=== PATIENT | female | born 1985 ===

== ENCOUNTER 2017-10-05 08:07 | Emergency (ER) | payer OTHER ==
[2017-10-05 08:32] VITALS: RESP 16; TEMP 97; O2SAT 98
[2017-10-05] MEDS ORDERED: Sodium Chloride 0.9% 1,000 ML IV STA (08:40)
--- NOTE | 2017-10-05 08:48 | ED PDOC ---
HPI: Female Pain Time Seen by Provider: 10/05/17 08:18 Chief Complaint (Nursing): Female Genitourinary Chief Complaint (Provider): Suprapubic pain and lower back pain History Per: Patient History/Exam Limitations: no limitations Onset/Duration Of Symptoms: Days (x7) Current Symptoms Are (Timing): Still Present Additional Complaint(s): Indu Reynaga is a 32 year old female presenting to the ED for an evaluation of constant suprapubic pain and lower back pain occurring for 1 week prior to arrival. The patient also states associated subjective fever (not present today), chills, dysuria, and white vaginal discharge. She reports taking Bactrim and Pyridium for 6 days prior to arrival without relief. The patient also reports being sexually active with her only. She denies nausea, vomiting, diarrhea, or hematuria. PMD: Dakota Mata MD Past Medical History Reviewed: Historical Data, Nursing Documentation, Vital Signs Vital Signs: Last Vital Signs Temp 97.0 F L 10/05/17 08:11 Pulse 105 H 10/05/17 08:11 Resp 16 10/05/17 08:11 BP 152/88 H 10/05/17 08:11 Pulse Ox 98 10/05/17 08:11 - Medical History PMH: No Chronic Diseases - Surgical History Surgical History: No Surg Hx - Family History Family History: States: No Known Family Hx - Social History Current smoker - smoking cessation education provided: No Ex-Smoker (has not smoked in the last 12 months): No Alcohol: None Drugs: Denies - Home Medications Home Medications: Ambulatory Orders Medication Instructions Recorded Doxycycline Hyclate 100 mg PO BID #20 cap 10/05/17 Ibuprofen [Motrin] 600 mg PO TID #20 tab 10/05/17 - Allergies Allergies/Adverse Reactions: Allergies Allergy/AdvReac Type Severity Reaction Status Date / Time No Known Allergies Allergy Verified 10/05/17 08:21 Review of Systems ROS Statement: Except As Marked, All Systems Reviewed And Found Negative Constitutional: Positive for: Fever (subjective; not present today), Chills Gastrointestinal: Negative for: Nausea, Vomiting, Diarrhea Genitourinary Female: Positive for: Vaginal Discharge (white), Pelvic Pain ( suprapubic pain). Negative for: Hematuria Musculoskeletal: Positive for: Back Pain (lower back pain) Physical Exam - Reviewed Nursing Documentation Reviewed: Yes Vital Signs Reviewed: Yes - Physical Exam Appears: Positive for: Non-toxic, No Acute Distress Head Exam: Positive for: ATRAUMATIC, NORMOCEPHALIC Skin: Positive for: Normal Color, Warm, Dry Eye Exam: Positive for: Normal appearance, EOMI ENT: Positive for: Normal ENT Inspection Neck: Positive for: Normal, Painless ROM, Supple Cardiovascular/Chest: Positive for: Regular Rate, Rhythm (regular rate), Tachycardia. Negative for: Edema, Murmur Respiratory: Positive for: Normal Breath Sounds. 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 Negative for: No Cerv. Motion Tender (CMT present ), Active Bleeding Back: Positive for: Other (lower back tenderness). Negative for: L CVA Tenderness, R CVA Tenderness Extremity: Positive for: Normal ROM. Negative for: Deformity Neurologic/Psych: Positive for: Alert, Oriented (x3). Negative for: Motor/ Sensory Deficits - Laboratory Results Result Diagrams: 10/05/17 08:50 10/05/17 08:50 - ECG O2 Sat by Pulse Oximetry: 98 (RA) Pulse Ox Interpretation: Normal Medical Decision Making Medical Decision Making: Time: 08:18 Impression: Suprapubic pain and vaginal discharge Differential includes but is not limited to UTI and PID, most likely PID Plan: * BMP * CBC (with differential) * Blood culture * Urinalysis * Chlamydia/GC RNA, TMA * NS 0.9% 1,000 ml IV 1,000 mls/hr * Toradol 15 mg IVP * US Pelvis/Transvag * Reevaluation US Pelvis/Transvag: FINDINGS: UTERUS: Measures 6.7 x 5.2 x 4.2 cm. Retroverted. Normal in size and appearance. No fibroid or other mass lesion seen. ENDOMETRIUM: Measures 12 mm in diameter and contains echogenic mobile debris. CERVIX: No cervical abnormality identified. RIGHT OVARY: Measures 2.9 x 2.6 x 1.7 cm. No solid mass. Normal flow. LEFT OVARY: Measures 3.0 x 1.8 x 2.2 cm. No solid mass. Normal flow. FREE FLUID: No significant free fluid noted. OTHER FINDINGS: None. IMPRESSION: Unremarkable pelvic ultrasound. Scribe Attestation: Documented by Lolly Ortiz, acting as a scribe for Azucena Narvaez MD. Provider Scribe Attestation: All medical record entries made by the Scribe were at my direction and personally dictated by me. I have reviewed the chart and agree that the record accurately reflects my personal performance of the history, physical exam, medical decision making, and the department course for this patient. I have also personally directed, reviewed, and agree with the discharge instructions and disposition. Disposition - Clinical Impression Clinical Impression: PID (acute pelvic inflammatory disease), Urinary tract infection - Patient ED Disposition Is Patient to be Admitted: No Doctor Will See Patient In The: Office Counseled Patient/Family Regarding: Studies Performed, Diagnosis, Need For Followup - Disposition Referrals: [facility] [Outside] Disposition: Routine/Home Disposition Time: 12:14 Condition: GOOD Additional Instructions: Take your medications as instructed. Follow up with your PCP in 2-3 days. Return for worsening. You will be called in 2 days for recheck Prescriptions: Doxycycline Hyclate 100 mg PO BID #20 cap Ibuprofen [Motrin] 600 mg PO TID #20 tab Instructions: Pelvic Inflammatory Disease (ED) Forms: [employer] (Emirati) Print Language: MONGOLIAN
[2017-10-05 09:28] LABS: BASO % 0.3 % (0.0-2.0); EOS # 0.1 K/uL (0.0-0.7); EOS % 1.4 % (0.0-4.0); HEMATOCRIT 39.1 % (34.0-47.0); LYMPH # 2.4 K/uL (1.0-4.3); LYMPH % 28.2 % (20.0-40.0); MEAN CELL VOLUME 85.8 fl (81.0-99.0); MEAN CORPUSCULAR HEMOGLOBIN 28.9 pg (27.0-31.0); MEAN CORPUSCULAR HGB CONC 33.7 g/dL (33.0-37.0); MONO # 0.6 K/uL (0.0-0.8); MONO % 7.2 % (0.0-10.0); NEUT # 5.3 K/uL (1.8-7.0); NEUT % 62.9 % (50.0-75.0); NRBC % 0.3 % (0.0-0.0); RED CELL DISTRIBUTION WIDTH 12.7 % (11.5-14.5); WHITE BLOOD COUNT 8.4 K/uL (4.8-10.8)
[2017-10-05 09:35] LABS: BLOOD UREA NITROGEN 13 mg/dl (7-17); CALCIUM 9.6 mg/dL (8.4-10.2); CARBON DIOXIDE 24 mmol/L (22-30); CHLORIDE 104 mmol/L (98-107); GFR AFRICAN-AMERICAN > 60; GLUCOSE,RANDOM 93 mg/dL (65-105); POTASSIUM 3.9 MMOL/L (3.6-5.0); SODIUM 140 mmol/l (132-148)
[2017-10-05 09:36] LABS: URINE BACTERIA RARE (<OCC); URINE BILIRUBIN NEGATIVE (NEGATIVE); URINE BLOOD SMALL (NEGATIVE); URINE COLOR STRAW (YELLOW); URINE GLUCOSE (UA) NEG (Normal); URINE KETONE NEGATIVE (NEGATIVE); URINE LEUKOCYTE ESTERASE NEG Leu/uL (Negative); URINE PROTEIN NEGATIVE (NEGATIVE); URINE UROBILINOGEN 0.2-1.0 mg/dL (0.2-1.0); WBC URINE < 1 /hpf (0-5)
--- NOTE | 2017-10-05 10:54 | US ---
HISTORY: pelvic pain vaginal discharge COMPARISON: None available. TECHNIQUE: Grayscale, color Doppler and spectral evaluation the pelvis performed transabdominally and transvaginally. FINDINGS: UTERUS: Measures 6.7 x 5.2 x 4.2 cm. Retroverted. Normal in size and appearance. No fibroid or other mass lesion seen. ENDOMETRIUM: Measures 12 mm in diameter and contains echogenic mobile debris. CERVIX: No cervical abnormality identified. RIGHT OVARY: Measures 2.9 x 2.6 x 1.7 cm. No solid mass. Normal flow. LEFT OVARY: Measures 3.0 x 1.8 x 2.2 cm. No solid mass. Normal flow. FREE FLUID: No significant free fluid noted. OTHER FINDINGS: None. IMPRESSION: Unremarkable pelvic ultrasound.
[2017-10-05] MEDS ORDERED: cefTRIAXone (Rocephin) 250 mg Inj IM ONE (12:02)
[2017-10-05] MEDS ORDERED: cefTRIAXone (Rocephin) 250 mg Inj ONE (12:20)
[2017-10-05 13:12] VITALS: BP 123/78; PULSE 78
== END 2017-10-05 12:45 | disposition home or self-care (01) ==
LOC: MERGE 08:07 → H.ER 08:07
DX: N39.0 Urinary tract infection, site not specified (principal); N73.9 Female pelvic inflammatory disease, unspecified
CPT/HCPCS: 76830; 76856; 80048; 81003; 85025; 87040; 87086; 87491; 87591; 96372; 96374; 99283; J0696; J1885; J7040

== ENCOUNTER 2017-10-18 12:39 | Emergency (ER) | payer OTHER ==
[2017-10-18 12:48] VITALS: BP 148/80; PULSE 84; RESP 18; TEMP 98.3; O2SAT 99
--- NOTE | 2017-10-18 13:25 | ED PDOC ---
HPI: Female Pain Time Seen by Provider: 10/18/17 13:10 Chief Complaint (Nursing): Female Genitourinary Chief Complaint (Provider): Low back pain History Per: Patient History/Exam Limitations: no limitations Onset/Duration Of Symptoms: Days (x 2 weeks) Current Symptoms Are (Timing): Still Present Additional Complaint(s): 32 year old female presents to the ER complaining of lower back pain for 2 weeks. States when urinating she has increased pain to the lower back and vaginal area. No associated fall or injury. Patient was seen here on 10/05/17 for similar complaint and was prescribed Bactrim and pyridium with no improvement. Denies any associated fever or chills. No incontinence or urinary frequency. PMD: Dr. Dakota Mata Past Medical History Reviewed: Historical Data, Nursing Documentation, Vital Signs Vital Signs: Last Vital Signs Temp 98.3 F 10/18/17 12:45 Pulse 84 10/18/17 12:45 Resp 18 10/18/17 12:45 BP 148/80 10/18/17 12:45 Pulse Ox 99 10/18/17 12:45 - Medical History PMH: No Chronic Diseases - Surgical History Surgical History: No Surg Hx - Family History Family History: States: Unknown Family Hx - Social History Current smoker - smoking cessation education provided: No Alcohol: None Drugs: Denies - Home Medications Home Medications: Ambulatory Orders Medication Instructions Recorded Doxycycline Hyclate 100 mg PO BID #20 cap 10/05/17 Ibuprofen [Motrin] 600 mg PO TID #20 tab 10/05/17 Naproxen 1 tab PO BID PRN #14 tab 10/18/17 diaZEpam [Valium] 5 mg PO Q6 PRN #5 tab 10/18/17 - Allergies Allergies/Adverse Reactions: Allergies Allergy/AdvReac Type Severity Reaction Status Date / Time No Known Allergies Allergy Verified 10/05/17 08:21 Review of Systems ROS Statement: Except As Marked, All Systems Reviewed And Found Negative Constitutional: Negative for: Fever, Chills Genitourinary Female: Positive for: Dysuria Musculoskeletal: Positive for: Back Pain (low) Physical Exam - Reviewed Nursing Documentation Reviewed: Yes Vital Signs Reviewed: Yes - Physical Exam Appears: Positive for: Non-toxic, No Acute Distress Head Exam: Positive for: ATRAUMATIC, NORMOCEPHALIC Skin: Positive for: Normal Color, Warm, Dry Eye Exam: Positive for: EOMI, Normal appearance, PERRL Neck: Positive for: Normal, Painless ROM, Supple Back: Positive for: Other (Left lower flank tenderness). Negative for: Vertebral Tenderness Extremity: Positive for: Normal ROM. Negative for: Deformity Neurologic/Psych: Positive for: Alert, Oriented - Laboratory Results Urine POC: Negative Urine dip results: Positive for: Blood. Negative for: Leukocyte Esterase, Nitrate, Ketones, Glucose, Bilirubin, Protein - ECG O2 Sat by Pulse Oximetry: 99 (RA) Pulse Ox Interpretation: Normal Medical Decision Making Medical Decision Making: Records reviewed from 10/05/17 visit: Urine culture from that visit shows no growth, GC was negative, and a pelvic US was unremarkable. Patient was also treated for PID at that time. Time: 13:17 Initial Plan: Will repeat: --Chlamydia/GC --Urine culture --Urinalysis Clinical Impression: Low back strain Patient is medically stable. Will d/c with valium and naproxen. Counseling was provided and all questions were answered regarding diagnosis and need for follow up with PMD. There is agreement to discharge plan. Return if symptoms persist or worsen. Scribe Attestation: Documented by Nirali Lawton, acting as a scribe for Tushar Peña PA-C Provider Scribe Attestation: All medical record entries made by the Scribe were at my direction and personally dictated by me. I have reviewed the chart and agree that the record accurately reflects my personal performance of the history, physical exam, medical decision making, and the department course for this patient. I have also personally directed, reviewed, and agree with the discharge instructions and disposition. Disposition - Clinical Impression Clinical Impression: Low back strain - Patient ED Disposition Is Patient to be Admitted: No Counseled Patient/Family Regarding: Diagnosis, Need For Followup, Rx Given - [facility]position [facility] Disposition: Routine/Home Disposition Time: 13:20 Condition: FAIR Prescriptions: diaZEpam [Valium] 5 mg PO Q6 PRN #5 tab PRN Reason: Muscle Spasm Naproxen 1 tab PO BID PRN #14 tab PRN Reason: Pain, Moderate (4-7) Instructions: Acute Low Back Pain (GEN) Forms: [facility] (Ukrainian) Print Language: [place]
[2017-10-18 14:21] LABS: SQUAMOUS EPITHIAL 2 /hpf (0-5); URINE BILIRUBIN NEGATIVE (NEGATIVE); URINE BLOOD SMALL (NEGATIVE); URINE CLARITY SLIGHTY-CLOUDY (Clear); URINE COLOR YELLOW (YELLOW); URINE GLUCOSE (UA) NEG (Normal); URINE LEUKOCYTE ESTERASE NEG Leu/uL (Negative); URINE NITRATE NEGATIVE (NEGATIVE); URINE PROTEIN NEGATIVE (NEGATIVE); URINE UROBILINOGEN 0.2-1.0 mg/dL (0.2-1.0)
== END 2017-10-18 14:19 | disposition home or self-care (01) ==
LOC: H.ER 12:39
DX: M54.5 Low back pain (principal); N39.0 Urinary tract infection, site not specified